=== PATIENT | female | born 1980 | race Asian ===

== ENCOUNTER 2022-04-09 15:12 | Emergency (ER) | payer OTHER, MEDICAID, SELFPAY ==
[2022-04-09 15:23] VITALS: BP 118/78; PULSE 91; RESP 16; TEMP 36.7; O2SAT 99; BMI 23.8
--- NOTE | 2022-04-09 15:28 | DI.RAD.S_ITS ---
PROCEDURE: XR CHEST 1V INDICATIONS: chest pain TECHNIQUE: One view of the chest was acquired. COMPARISON: None. FINDINGS: Surgical changes and devices: None. Lungs and pleura: Lungs are clear. No pleural effusions or pneumothorax. Mediastinum: Mediastinal contours appear normal. Heart size is normal. Bones and chest wall: No suspicious bony lesions. Overlying soft tissues appear unremarkable. IMPRESSION: No acute pulmonary process. Dictated by: Crystal To M.D. on 04/09/2022 at 16:08 Approved by: Crystal To M.D. on 04/09/2022 at 16:08
[2022-04-09 15:47] LABS: Add Manual Diff / Slide Review NO; Basophils Absolute Auto 0 /uL (0-100); Basophils Percent Auto 0.7 % (0-2); Eosinophils Absolute Auto 100 /uL (0-450); Eosinophils Percent Auto 1.6 % (2-4); Hematocrit 40.5 % (36-46); Hemoglobin 13.4 g/dL (12.0-16.0); Lymphocytes Absolute Auto 1200 /uL (1100-4500); Lymphocytes Percent Auto 24.5 % (25-40); Mean Corpuscular Hemoglobin 28.8 PG (26-34); Mean Corpuscular Volume 87.4 fL (80-100); Monocytes Absolute Auto 600 /uL (0-900); Monocytes Percent Auto 13.2 % (3-14); Neutrophils Absolute Auto 2900 /uL (1500-7000); Platelet Count 177 X10^3/uL (150-400); Red Blood Cell Count 4.63 X10^6/uL (4.0-5.2); Red Cell Distribution Width 13.1 % (11.6-14.8); White Blood Cell Count 4.8 X10^3/uL (4.5-11.0)
[2022-04-09 16:01] LABS: Prothrombin Time 11.2 SECONDS (10.1-12.7)
[2022-04-09 16:03] LABS: PTT Partial Thromboplastin Tim 29 SECONDS (26-36)
[2022-04-09 16:08] LABS: Alanine Aminotransferase 21 IU/L (<35); Albumin 4.5 g/dL (3.5-5.0); Albumin Globulin Ratio 1.2 (1.0-2.8); Alkaline Phosphatase 38 U/L (38-126); Aspartate Aminotransferase 23 IU/L (14-36); BUN Creatinine Ratio 20.4 (6-22); Bilirubin Total 0.3 mg/dL (0.2-1.3); Blood Urea Nitrogen 10 mg/dL (7-17); Carbon Dioxide 24 mmol/L (22-32); Chloride 104 mmol/L (98-107); Creatine Kinase 54 U/L (30-135); Estimated Glomerular Filt Rate > 60 mL/min (>60); Globulin 3.8 g/dL (1.7-4.1); Glucose 101 mg/dL (70-100); HEMOLYSIS 18 (0-50); Lipase 98 U/L (23-300); Magnesium 1.9 mg/dL (1.6-2.3); Potassium 3.6 mmol/L (3.4-5.1); Sodium 138 mmol/L (137-145); Total Protein 8.3 g/dL (6.3-8.2)
[2022-04-09 16:18] LABS: Troponin I < 0.012 ng/mL (0.01-0.034)
--- NOTE | 2022-04-12 08:33 | ED.CHESTPAIN ---
HPI - Chest Pain General Chief Complaint: Chest Pain Stated Complaint: Neck pain, chest pain- 20 minutes Source: patient Mode of arrival: Ambulatory History of Present Illness HPI narrative: Patient left without being seen. Related Data Allergies Allergy/AdvReac Type Severity Reaction Status Date / Time No Known Drug Allergies Allergy Verified 04/09/22 15:23 Patient History Social History Smoking Status: Never smoker Smoking Status: Never smoker Substance Use Type: does not use Exam Initial Vital Signs Initial Vital Signs: Vital Signs Temperature 98.1 F 04/09/22 15:23 Pulse Rate 91 H 04/09/22 15:23 Respiratory Rate 16 04/09/22 15:23 Blood Pressure 118/78 04/09/22 15:23 Pulse Oximetry 99 04/09/22 15:23 Oxygen Delivery Method 04/09/22 15:23 Course Orders Ordered: Discontinued Medications Aspirin (Aspirin 81 Mg Chew Tab) 324 mg PO NOW ONE Stop: 04/09/22 15:29 MDM - Chest Pain Lab Data 04/09/22 15:36 04/09/22 15:36 Labs: Lab Results 04/09/22 04/09/22 04/09/22 Range/Units 15:36 15:36 15:36 WBC 4.8 (4.5-11.0) X10^3/uL RBC 4.63 (4.0-5.2) X10^6/uL Hgb 13.4 (12.0-16.0) g/dL Hct 40.5 (36-46) % MCV 87.4 (80-100) fL MCH 28.8 (26-34) PG MCHC 33.0 (30-36) % RDW 13.1 (11.6-14.8) % Plt Count 177 (150-400) X10^3/uL Neut % (Auto) 60.0 (50-75) % Lymph % (Auto) 24.5 L (25-40) % [place] % (Auto) 13.2 (3-14) % Eos % (Auto) 1.6 L (2-4) % Baso % (Auto) 0.7 (0-2) % Neut # (Auto) 2900 (4391-6332) /uL Lymph # (Auto) 1200 (2704-6738) /uL [place] # (Auto) 600 (0-900) /uL Eos # (Auto) 100 (0-450) /uL Baso # (Auto) 0 (0-100) /uL PT 11.2 (10.1-12.7) SECONDS INR 1.0 (0.9-1.3) APTT 29 (26-36) SECONDS Sodium 138 (137-145) mmol/L Potassium 3.6 (3.4-5.1) mmol/L Chloride 104 (98-107) mmol/L Carbon Dioxide 24 (22-32) mmol/L BUN 10 (7-17) mg/dL Creatinine 0.49 L (0.52-1.04) mg/dL Estimated GFR > 60 (>60) mL/min BUN/Creatinine Ratio 20.4 (6-22) Glucose 101 H (70-100) mg/dL Calcium 9.0 (8.4-10.2) mg/dL Magnesium 1.9 (1.6-2.3) mg/dL Total Bilirubin 0.3 (0.2-1.3) mg/dL AST 23 (14-36) IU/L ALT 21 (<35) IU/L Alkaline Phosphatase 38 (38-126) U/L Total Creatine Kinase 54 (30-135) U/L CK-MB (CK-2) TNP CK-MB (CK-2) Rel Index TNP Troponin I < 0.012 (0.01-0.034) ng/mL Total Protein 8.3 H (6.3-8.2) g/dL Albumin 4.5 (3.5-5.0) g/dL Globulin 3.8 (1.7-4.1) g/dL Albumin/Globulin Ratio 1.2 (1.0-2.8) Lipase 98 (23-300) U/L Imaging Data Chest x-ray: Radiologist's Impression: Freddy Calderon??42??F??1980 ? Allergy/Adv: No Known Drug Allergies Close Chest X-Ray (Signed) Crystal To - 04/09/22 Launch?[address] [address] XRay Report Signed Patient: Freddy Calderon MR#: [id number] : 1980 Acct:[id number] Age/Sex: 42 / F Date of Service: 04/09/22 Loc: ED Accession Number: [id number] ?? Procedure: XR chest 1V Ordering Provider: Indira Mcgee D.O. PROCEDURE:? XR CHEST 1V ? INDICATIONS:? chest pain ? TECHNIQUE:? One view of the chest was acquired.? ? COMPARISON:? None. ? FINDINGS:? ? Surgical changes and devices:? None.? ? Lungs and pleura:? Lungs are clear.? No pleural effusions or pneumothorax.? ? Mediastinum:? Mediastinal contours appear normal.? Heart size is normal.? ? Bones and chest wall:? No suspicious bony lesions.? Overlying soft tissues appear unremarkable.? ? IMPRESSION:? No acute pulmonary process. ? ? Dictated by: Crystal To M.D. on 04/09/2022 at 16:08 ? ? Approved by: Crystal To M.D. on 04/09/2022 at 16:08?? ECG Data Attestation: I personally reviewed and interpreted this ECG as follows: Prior ECG tracings: not available for review Interpretation: Sinus rhythm rate 88 SC 146 QRS 80 QTC 421. No acute ST elevation or depression noted. No priors for comparison. Discharge Plan Departure Patient Disposition: Left Without Being Seen Clinical Impression: Patient left after triage
== END 2022-04-09 16:29 | disposition left against medical advice (07) ==
PROVIDERS: Emergency Provider Emergency Medicine
DX: R07.9 Chest pain, unspecified (principal)
CPT/HCPCS: 71045; 80053; 82550; 83690; 83735; 84484; 85025; 85610; 85730; 93005; 99281

== ENCOUNTER 2025-02-01 08:45 | Emergency (ER) | payer OTHER, SELFPAY ==
[2025-02-01] VITALS (8 sets, daily range): BP systolic 134–162; BP diastolic 90–97; PULSE 84–98; RESP 18–33; TEMP 36.6; O2SAT 97–100; BMI 23.8
--- NOTE | 2025-02-01 09:23 | ED.HA ---
HPI - Headache General Chief Complaint: Headache Stated Complaint: Migraine Since last night. Time Seen by Provider: 02/01/25 08:53 Mode of arrival: Ambulatory History of Present Illness HPI Narrative: 45 years old female with history of migraine headache, tubal ligation came in today complaining of worst migraine headache at her forehead since last night with light sensitivity, sound sensitivity without fever, runny nose, sore throat, coughing, chest pain, shortness of breath, numbness weakness on her arms or legs, facial droop, slurred speech, change in her vision, stiff neck, head injury. She said it was similar to her migraine headache but much stronger. She reported the pain 10/10 in severity. Related Data Allergies Allergy/AdvReac Type Severity Reaction Status Date / Time diphenhydramine (From Allergy Hives Verified 02/01/25 09:03 Benadryl) Penicillins Allergy Hives Verified 02/01/25 09:03 Review of Systems Review of Systems Narrative: positive for worst migraine headache at her forehead , light sensitivity, sound sensitivity negative for fever, runny nose, sore throat, coughing, chest pain, shortness of breath, numbness weakness on her arms or legs, facial droop, slurred speech, change in her vision, stiff neck, head injury. Patient History Social History Smoking Status: Current every day smoker Smoking Status: Current every day smoker Exam Narrative Exam Narrative: GENERAL: Alert awake but in acute distress due to the headache. Tearing. HEAD: Atraumatic. Normocephalic. EYES: Pupils equal round and reactive. Extraocular motions intact. No scleral icterus. No injection or drainage. NECK: Trachea midline. Non tender CARDIOVASCULAR: Regular rate and rhythm without murmurs, gallops, or rubs. RESPIRATORY: Clear to auscultation. Breath sounds equal bilaterally. No wheezes, rales, or rhonchi. GASTROINTESTINAL: Abdomen soft, non-tender, nondistended. EXTREMITIES: No edema or joint tenderness. BACK: Nontender without deformity or crepitance. No flank tenderness. NEURO: AOx3. 5/5 strength on both arms and legs. Equal sensation on both arms and legs. No facial droop. SKIN: No rash or erythema of visible areas Initial Vital Signs Initial Vital Signs: Vital Signs Pulse Rate 98 H 02/01/25 08:57 Pulse Oximetry 98 02/01/25 08:57 Oxygen Delivery Method Room Air 02/01/25 08:57 Course Orders Ordered: Discontinued Medications Droperidol (Droperidol 2.5 Mg/Ml Vial) 1.25 mg IV NOW ONE Stop: 02/01/25 09:11 Last Admin: 02/01/25 09:29 Dose: 1.25 mg Documented By: RB Sodium Chloride (Normal Saline 0.9%) 500 mls @ 1,000 mls/hr IV BOLUS ONE Stop: 02/01/25 09:37 Last Infusion: 02/01/25 10:12 Dose: Infused Documented By: Admin: 02/01/25 09:29 Dose: 1,000 mls/hr Documented By: RB Ketorolac Tromethamine (Ketorolac 30 Mg/Ml Vial) 15 mg IV NOW ONE Stop: 02/01/25 09:09 Last Admin: 02/01/25 09:30 Dose: 15 mg Documented By: RB Vital Signs Vital signs: Vital Signs - 8 hr 02/01/25 09:03 Temperature 98 F Pulse Rate 84 Respiratory Rate 18 Blood Pressure 152/96 H Pulse Oximetry 98 Oxygen Delivery Method Room Air MDM - Headache Lab Data 02/01/25 09:20 02/01/25 09:20 Labs: Lab Results 02/01/25 02/01/25 02/01/25 Range/Units 09:20 09:40 10:08 WBC 16.1 H (4.5-11.0) X10^3/uL RBC 4.25 (4.0-5.2) X10^6/uL Hgb 12.0 (12.0-16.0) g/dL Hct 36.2 (36-46) % MCV 85.2 (80-100) fL MCH 28.3 (26-34) PG MCHC 33.3 (30-36) % RDW 13.4 (11.6-14.8) % Plt Count 293 (150-400) X10^3/uL Neut % (Auto) 81.1 H (50-75) % Lymph % (Auto) 8.5 L (25-40) % [place] % (Auto) 7.9 (3-14) % Eos % (Auto) 2.0 (2-4) % Baso % (Auto) 0.5 (0-2) % Neut # (Auto) 01991 H (1728-3364) /uL Lymph # (Auto) 1400 (5395-5378) /uL [place] # (Auto) 1300 H (0-900) /uL Eos # (Auto) 300 (0-450) /uL Baso # (Auto) 100 (0-100) /uL Sodium 138 (137-145) mmol/L Potassium 3.6 (3.4-5.1) mmol/L Chloride 107 (98-107) mmol/L Carbon Dioxide 20 L (22-32) mmol/L BUN 9 (7-17) mg/dL Creatinine 0.49 L (0.52-1.04) mg/dL Estimated GFR > 60 (>60) mL/min BUN/Creatinine Ratio 18.4 (6-22) Glucose 129 H (70-99) mg/dL Calcium 8.7 (8.4-10.2) mg/dL Total Bilirubin 0.6 (0.2-1.3) mg/dL AST 21 (14-36) IU/L ALT 13 (<35) IU/L Alkaline Phosphatase 51 (38-126) U/L Total Protein 8.2 (6.3-8.2) g/dL Albumin 4.2 (3.5-5.0) g/dL Globulin 4.0 (1.7-4.1) g/dL Albumin/Globulin Ratio 1.1 (1.0-2.8) Urine RBC 0-1/hpf (0-5/HPF) Urine WBC 0-1/hpf (0-5/HPF) Ur Squamous Epith Cells 0-1 /hpf (0-5/HPF) Urine Bacteria Occasional (0-1) (None) Ur Culture Indicated? Cult not indicated Vol Urine Centrifuged 10ml (spun) SARS-CoV-2 (PCR) Negative (Negative) Influenza A (RT-PCR) Flu a negative (NEGATIVE) Influenza B (RT-PCR) Flu b negative (NEGATIVE) RSV (PCR) Negative (Negative) Point of Care Testing Test Results Negative Urine Dip Bedside Urine Glucose Negative Bedside Urine Bilirubin - Negative Bedside Urine Ketone - Negative Urine Specific [place] 1.005 Bedside Urine Occult Blood +/- Bedside Urine pH 6.0 Bedside Urine Protein - Negative Bedside Urine Urobilinogen - Negative Bedside Urine Nitrite - Negative Bedside Urine Leukocytes - Negative Esterase MDM Narrative Medical decision making narrative: 45 years old female with history of migraine headache, tubal ligation came in today complaining of worst migraine headache at her forehead since last night with light sensitivity, sound sensitivity without fever, runny nose, sore throat, coughing, chest pain, shortness of breath, numbness weakness on her arms or legs, facial droop, slurred speech, change in her vision, stiff neck, head injury. She said it was similar to her migraine headache but much stronger. She reported the pain 10/10 in severity. Her neuro exam was intact without focal deficits. She answering questions appropriately and moves all extremities. No stiff neck. Her CV exam, lung exam, abdominal exam were normal. She alert oriented x4 in our ED but was a in the acute distress. Her chest x-ray showed no acute finding. Her CBC showed WBC 16.1 otherwise normal CBC. Her BNP was normal. Her LFT was normal. Her UA was normal. Her COVID, flu, RSV were normal. Later I found out that the patient eloped from the ED without IV line removal so the nurse called the police to follow her. She left our ED without having CT scan brain, CTA head. I did not have a chance to talk to her after initial interview and examination. Discharge Plan Departure Patient Disposition: Elopement Clinical Impression: Worst headache of life
[2025-02-01] MEDS: droPERidol 2.5 MG/ML VIAL 1.25 MG IV (09:29)
[2025-02-01] MEDS: SODIUM CHLORIDE 0.9% 500 ML 1000 ML IV (09:29)
[2025-02-01] MEDS: KETOROLAC 30 MG/ML VIAL 15 MG IV (09:30)
[2025-02-01 09:41] LABS: Add Manual Diff / Slide Review NO; Hematocrit 36.2 % (36-46); Hemoglobin 12.0 g/dL (12.0-16.0); Lymphocytes Absolute Auto 1400 /uL (1100-4500); Mean Corpuscular HGB Conc 33.3 % (30-36); Mean Corpuscular Hemoglobin 28.3 PG (26-34); Mean Corpuscular Volume 85.2 fL (80-100); Platelet Count 293 X10^3/uL (150-400)
[2025-02-01 09:53] LABS: Alanine Aminotransferase 13 IU/L (<35); Albumin 4.2 g/dL (3.5-5.0); Albumin Globulin Ratio 1.1 (1.0-2.8); Alkaline Phosphatase 51 U/L (38-126); Blood Urea Nitrogen 9 mg/dL (7-17); Calcium 8.7 mg/dL (8.4-10.2); Carbon Dioxide 20 mmol/L (22-32); Chloride 107 mmol/L (98-107); Estimated Glomerular Filt Rate > 60 mL/min (>60); Globulin 4.0 g/dL (1.7-4.1); Glucose 129 mg/dL (70-99); HEMOLYSIS < 15 (0-50); Potassium 3.6 mmol/L (3.4-5.1); Sodium 138 mmol/L (137-145); Total Protein 8.2 g/dL (6.3-8.2)
[2025-02-01 10:26] LABS: Influenza A - CEPHEID Flu A NEGATIVE (NEGATIVE); Influenza B - CEPHEID Flu B NEGATIVE (NEGATIVE)
[2025-02-01 10:27] LABS: COVID-19 CEPHEID 4-PLEX PCR Negative (Negative)
--- NOTE | 2025-02-01 10:35 | PC.NURSE ---
This RN was responding to a rapid response when vocera by fellow RN when this patient was last seen at 1030. I last saw the patient in the previous 15 minutes. Patient body pillow remains in the room on patient bed. Patient and spouse are missing. Patient had IV in arm and has leads attached to chest. A search for patient in imaging and bathrooms. Calls to patient phone have been made several times and straight to voicemail.
[2025-02-01 10:45] LABS: Culture Indicated Urine Cult Not Indicated
--- NOTE | 2025-02-01 10:47 | PC.NURSE ---
This RN informed director about patient going missing. This RN went to security desk and the guard there did state that he saw patient left department through the front door and per guard was walking towards commercial. Patient has IV still in place and cardiac leads. Patient body pillow remains in department. Non emergency police line called and informed about missing patient to ensure patient IV removal occurs. Provider also informed of patient leaving.
== END 2025-02-01 10:30 | disposition left against medical advice (07) ==
PROVIDERS: Emergency Provider Emergency Medicine
DX: R51.9 Headache, unspecified (principal); Z53.29 Procedure and treatment not carried out because of patient's decision for other reasons
CPT/HCPCS: 36415; 80053; 81003; 81015; 81025; 85025; 87637; 96374; 96375; 99284; J1790; J1885; J7040